=== PATIENT | female | born 1955 | race Caucasian/White ===

== ENCOUNTER → 2016-04-22 | Outpatient (CLI) | payer OTHER | LOC: RAD 11:54 | DX: R50.9 Fever, unspecified (principal); J20.8 Acute bronchitis due to other specified organisms ==

== ENCOUNTER → 2016-08-23 | Outpatient (CLI) | payer OTHER | LOC: LAB 12:28 | DX: J02.8 Acute pharyngitis due to other specified organisms (principal) ==

== ENCOUNTER 2021-04-16 11:00 | Outpatient (RCR) | payer MEDICARE, OTHER | END 2021-04-30 | disposition home or self-care (01) | LOC: PT | DX: R26.9 Unspecified abnormalities of gait and mobility (principal); R54 Age-related physical debility ==

== ENCOUNTER 2021-05-03 13:00 | Outpatient (RCR) | payer MEDICARE, OTHER | END 2021-05-28 | disposition home or self-care (01) | LOC: PT | DX: R26.9 Unspecified abnormalities of gait and mobility (principal); R54 Age-related physical debility ==